=== PATIENT | female | born 1950 | race Caucasian/White ===

== ENCOUNTER 2023-07-16 11:51 | Outpatient (CLI) | payer MEDICARE, BC ==
[~2023-07-16] VITALS: Ht 162.6 cm; Wt 81.2 kg
[2023-07-16 13:08] VITALS: BP 145/71; TEMP 97.6; O2SAT 96
[2023-07-16] MEDS ORDERED: ACETAMINOPHEN 650MG PO PRIOR TO INFUSION PO ONE (13:15)
[2023-07-16] MEDS ORDERED: NS 1,000 ML IV SCH (13:15)
[2023-07-16] MEDS ORDERED: inFLIXimab INJECTION 500 MG in NS 200 ML IV ONE (13:15)
[2023-07-16] MEDS ORDERED: diphenhydrAMINE 25MG PO PRIOR TO INFUSION PO ONE (13:15)
[2023-07-16 14:10] VITALS: BP 133/63; TEMP 97.8; O2SAT 96
[2023-07-16 14:55] VITALS: BP 137/63; TEMP 97.7; O2SAT 95
== END 2023-07-16 15:05 ==
LOC: M INFU 11:51
PROVIDERS: ATTEND Internal Medicine Rheumatology
DX: M06.9 Rheumatoid arthritis, unspecified (principal); Z88.8 Allergy status to other drugs, medicaments and biological substances
CPT/HCPCS: 96413; J1745